=== PATIENT | male | born 1940 | race Caucasian/White ===

== ENCOUNTER 2020-05-08 09:27 | Outpatient (CLI) | payer MEDICARE, MEDICAID, SELFPAY ==
--- NOTE | ~2020-05-08 | NM_ITS ---
EXAMINATION: NM bone scan whole body DATE: 05/08/2020 12:51 INDICATION: Prostate cancer TECHNIQUE: 24 mCi Tc-99m HDP was administered intravenously. Delayed whole-body scintigrams were obt ained. 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 More atypical focus of mild uptake along the lateral cortex of the mid left tibial diaph ysis. No other suspicious foci of abnormal bone uptake. IMPRESSION: 1. Atypical focus of mild increased uptake along the mid left tibial diaphysis which in the absence o f other suspicious foci of bone uptake is most likely related to prior trauma. Correlate with clinica l history and consider taking left tibia/fibular radiographs. 2. Typical distribution of mild scattered likely degenerative joint centered uptake. 2. No other suspicious foci of abnormal bone uptake to suggest metastatic disease. Reviewed, dictated and finalized at location B. IMPRESSION: 1. Atypical focus of mild increased uptake along the mid left tibial diaphysis which in the absence of other suspicious foci of bone uptake is most likely rel ated to prior trauma. Correlate with clinical history and consider taking left tibia/fibular radiographs. 2. Typical distribution of mild scattered likely degenerative joint centered up take. 2. No other suspicious foci of abnormal bone uptake to suggest metastatic disea se.
--- NOTE | ~2020-05-08 | CT_ITS ---
EXAMINATION: CT abdomen pelvis w con DATE: 05/08/2020 10:18 INDICATION: Prostate cancer TECHNIQUE: Computed tomography (CT) of the abdomen and pelvis was performed with 100 mL Omnipaque-350 intravenous contrast. Automated exposure control and iterative reconstruction technique were employe d. The dose-length product was 602.45 mGy-cm. COMPARISON: None FINDINGS: Mild right basilar atelectasis. Heart size is normal. No pericardial or pleural effusion. Atheroscler otic coronary artery calcifications. Small sliding-type hiatal hernia. There are couple small macrosc opic fat attenuation lipomas along the third portion of the duodenum. Gallbladder is not visualized a nd likely surgically absent. Liver, spleen, pancreas and right adrenal gland are normal. 3.0 x 1.9 cm left adrenal nodule. Atherosclerotic calcifications at the renal arteries at the bilateral renal hil a. There is mild smooth thickening and increased enhancement of the urothelium at the left renal pelv is which raises concern for ascending urinary tract infection. Prostatomegaly. A portion of the other mcmahan normal-appearing bladder extends into a moderate-sized left inguinal hernia. There is also a sma ll fat-containing right inguinal hernia. There are few small diverticula along the gas containing appendix which measures up to 9 mm in diamet er which is without surrounding periappendiceal inflammatory stranding to suggest acute appendicitis. Extensive diverticulosis along the colon as well as the distal ileum without adjacent inflammatory s tranding to suggest acute diverticulitis. There is mild fatty infiltration of the colon and ileum. Th ere are multiple more discrete small macroscopic fat attenuation lipomas within the lumen of the duod enum. No bowel obstruction. No free intraperitoneal gas or fluid. No pathologically enlarged abdominal or pelvic lymphadenopathy. There is calcified atherosclerosis of the aorta and many of the other arteries. Distal abdominal aorta is mildly ectatic measuring up to 2 .8 cm diameter as is the right common iliac artery measuring up to 2.0 cm. Postoperative change of en doluminal stenting at the bilateral external iliac arteries and bilateral superficial femoral arterie s. Mild scattered degenerative skeletal changes in the spine and at the bilateral hips. No suspicious lytic or blastic bone lesions. Minimal to mild likely physiologic anterior wedging at T11-L1. IMPRESSION: 1. Indeterminate 3.0 x 1.9 cm left adrenal nodule with differential including adenoma or less likely metastatic disease. Recommend further evaluation with pre and postcontrast MRI. 2. Prostatomegaly presumably related to patient's reported prostate cancer. 3. Urothelial enhancement at the left renal pelvis raising concern for ascending urinary tract infect ion. Correlate with urinalysis. 4. Small sliding-type hiatal hernia. 5. Diverticulosis. 6. Bilateral inguinal hernias, small on the right and moderate sized and containing a portion of the bladder on the left. 7. 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 Reviewed, dictated and finalized at location B. IMPRESSION: 1. Indeterminate 3.0 x 1.9 cm left adrenal nodule with differential including a denoma or less likely metastatic disease. Recommend further evaluation with pre and postcontrast MRI. 2. Prostatomegaly presumably related to patient's reported prostate cancer. 3. Urothelial enhancement at the left renal pelvis raising concern for ascendin g urinary tract infection. Correlate with urinalysis. 4. Small sliding-type hiatal hernia. 5. Diverticulosis. 6. Bilateral inguinal hernias, small on the right and moderate sized and contai mandi a portion of the bladder on the left. 7. Multiple duodenal lipomas of uncertain etio
--- NOTE | ~2020-05-08 | XR_ITS ---
EXAMINATION: XR chest 2V DATE: 05/08/2020 09:51 INDICATION: Prostate cancer TECHNIQUE: PA and lateral views of the chest were obtained. COMPARISON: None FINDINGS: Mild right basilar atelectasis. Small crescentic density projecting over the anterior right sixth rib which on CT appears to correlate costochondral calcification. No other airspace opacities, pulmonary edema, pleural effusion or pneumothorax. The cardiomediastinal silhouette is normal. Mild thoracic s pondylosis. IMPRESSION: 1. Mild right basilar atelectasis. Reviewed, dictated and finalized at location B.
[2020-05-08 10:08] LABS: Estimated Glomerular Filt Rate 37
== END 2020-05-08 09:28 | disposition home or self-care (01) ==
LOC: ANHIMG 09:39
PROVIDERS: PCP Internal Medicine; Visit Provider Urology
DX: C61 Malignant neoplasm of prostate (principal); K44.9 Diaphragmatic hernia without obstruction or gangrene; N40.0 Benign prostatic hyperplasia without lower urinary tract symptoms; K57.30 Diverticulosis of large intestine without perforation or abscess without bleeding; K40.90 Unilateral inguinal hernia, without obstruction or gangrene, not specified as recurrent; D35.02 Benign neoplasm of left adrenal gland; R91.8 Other nonspecific abnormal finding of lung field
CPT/HCPCS: 71046; 74177; 78306; A9561; Q9967